=== PATIENT | male | born 1975 ===

== ENCOUNTER 2017-03-02 21:08 | Emergency (ER) | payer SELFPAY ==
[2017-03-02 21:15] VITALS: BP 126/79; PULSE 79; RESP 20; TEMP 98.5; O2SAT 99
--- NOTE | 2017-03-02 21:55 | C.PDOC ---
History Of Present Illness 41 year old male presents to the ER with a complaint of dental pain for the past month. Patient has not taken any OTC medication for the pain and notes he has not followed up due to lack of insurance. Denies trauma, fever or facial swelling. Time Seen by Provider: 03/02/17 21:18 Chief Complaint (Nursing): Dental Pain History Per: Patient History/Exam Limitations: no limitations Onset/Duration Of Symptoms: Days Current Symptoms Are (Timing): Still Present Quality: Positive for: "Pain" Recent travel outside of the [place]: No Past Medical History Reviewed: Historical Data, Nursing Documentation, Vital Signs Vital Signs: Last Vital Signs Temp 98.5 F 03/02/17 21:11 Pulse 79 03/02/17 21:11 Resp 20 03/02/17 22:19 BP 126/79 03/02/17 21:11 Pulse Ox 99 03/03/17 00:07 - Medical History PMH: No Chronic Diseases Surgical History: No Surg Hx Family History: States: Unknown Family Hx - Social History Hx Alcohol Use: No Hx Substance Use: No - Immunization History Hx Tetanus Toxoid Vaccination: Yes Hx Influenza Vaccination: No Hx Pneumococcal Vaccination: No Review Of Systems Constitutional: Negative for: Fever, Chills ENT: Positive for: Mouth Pain. Negative for: Mouth Swelling Physical Exam - Physical Exam Appears: Non-toxic Skin: Normal Color, Warm, Dry Head: Atraumatic, Normacephalic, No Swelling (Facial) Eye(s): bilateral: Normal Inspection, EOMI Ear(s): Bilateral: Normal Nose: Normal Oral Mucosa: Moist Tongue: Normal Appearing, No Swelling Lips: Normal Appearing, No Swelling Teeth: Caries (Left lower posterior molar), Other (Multiple eroded teeth) Gingiva: Normal Appearing, No Swelling Throat: Normal, No Erythema Neck: Normal, No Midline Cervical Tenderness, No Paracervical Tenderness, Supple ED Course And Treatment O2 Sat by Pulse Oximetry: 99 (Room air) Pulse Ox Interpretation: Normal Progress Note: Motrin administered. Patient started on [id number] and instructed to follow up at [facility] for dental work up. Disposition Counseled Patient/Family Regarding: Diagnosis, Need For Followup, Rx Given - Disposition Referrals: [facility], Dental [Other] Disposition: HOME/ ROUTINE Disposition Time: 21:53 Condition: STABLE Additional Instructions: PLease follow up with Dentist in [facility] Take meds as directed Return to ER if worse Prescriptions: Ibuprofen [Motrin] 600 mg PO Q6H #20 tab Penicillin VK [Penicillin VK Tab] 500 mg PO Q6H #28 tab Instructions: Dental Caries (ED) Forms: [facility] (Martiniquais) - Clinical Impression Clinical Impression: Dental caries - Scribe Statement The provider has reviewed the documentation as recorded by the Scribe Kimo Mejia All medical record entries made by the Arnulfoibmyla were at my direction and personally dictated by me. I have reviewed the chart and agree that the record accurately reflects my personal performance of the history, physical exam, medical decision making, and the department course for this patient. I have also personally directed, reviewed, and agree with the discharge instructions and disposition.
== END 2017-03-02 22:19 | disposition home or self-care (01) ==
LOC: C.ER 21:08
DX: K02.9 Dental caries, unspecified (principal)